=== PATIENT | male | born 1965 | race Caucasian/White ===

== ENCOUNTER 2017-06-15 14:47 | Emergency (ER) | payer SELFPAY ==
[~2017-06-15] VITALS: Ht 177.8 cm; Wt 85.0 kg
[~2017-06-15 14:47] MED LIST: BACT800T5 PO
[2017-06-15 15:01] VITALS: BP 140/79; PULSE 88; RESP 16; TEMP 97.9; O2SAT 96
--- NOTE | 2017-06-15 15:42 | PD ---
HPI Chief Complaint: Back/ Neck Pain or Injury Time Seen by Provider: 15:25 Travel History International Travel<30 days: No Contact w/Intl Traveler<30days: No Traveled to known affect area: No History of Present Illness HPI 52-year-old male presents to the emergency department for right-sided low back pain since this morning. States he has never had back pain before is concerned that is something serious. States that his pain increases with back extension and improves with sitting up straight, without radiation of pain. States when he has the pain it is sharp in nature and moderate. Denies numbness, tingling, or weakness. Denies fever, chills, chest pain, shortness of breath, bowel or bladder incontinence, IV drug use, or personal history cancer. Also denies any inciting events. PFSH Past Medical History Diminished Hearing: No Immunizations Current: Yes Social History Alcohol Use: No Tobacco Use: Yes (1PPD) Substance Use: No Allergies-Medications (Allergen,Severity, Reaction): Coded Allergies: No Known Allergies (Unverified , 06/15/17) Reported Meds & Prescriptions Reported Meds & Active Scripts Active Robaxin (Methocarbamol) 500 Mg Tab 500 Mg PO TID 3 Days Review of Systems Except as stated in HPI: all other systems reviewed are Neg Physical Exam Narrative GENERAL: Well-developed well-nourished SKIN: Focused skin assessment warm/dry. HEAD: Atraumatic. Normocephalic. NECK: Trachea midline. No JVD. CARDIOVASCULAR: Regular rate and rhythm. No murmur appreciated. RESPIRATORY: No accessory muscle use. Clear to auscultation. Breath sounds equal bilaterally. GASTROINTESTINAL: Abdomen soft, non-tender, nondistended. MUSCULOSKELETAL: No obvious deformities. No clubbing. No cyanosis. No edema. BACK: No CVA tenderness. No rash. No point tenderness on palpation of the spine. Mild TTP to the left SI joint and surrounding musculature NEUROLOGICAL: Awake and alert. No obvious cranial nerve deficits. Motor grossly within normal limits. Normal speech. Neurovascular intact PSYCHIATRIC: Appropriate mood and affect; insight and judgment normal. Data Data Last Documented VS Vital Signs Date Time Temp Pulse Resp B/P (MAP) Pulse Ox O2 Delivery O2 Flow Rate FiO2 06/15/17 15:01 97.9 88 16 140/79 (99) 96 Orders Orders Ed Discharge Order (06/15/17 15:44) [facility] Medical Decision Making Medical Screen Exam Complete: Yes Emergency Medical Condition: Yes Differential Diagnosis Right sciatica versus lumbar ago versus strain versus sprain versus sacroiliitis Narrative Course 52-year-old male complaining of low back pain since this morning. Patient denies any inciting events and any red flags. Patient was concerned that this was a serious condition since he had never had back pain before. Physical exam revealed mild tenderness to palpation of the right SI joint and surrounding musculature, otherwise normal. Neurovascularly intact. 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 Advised patient when to return to the emergency department Diagnosis Primary Impression: Muscle strain Referrals: [facility] Departure Forms: Tests/Procedures, Work Release Enter return to work date: Jun 17, 2017 Additional Instructions: Perform light stretches of the lower back and legs, and alternate heat and ice packs. If you develop increased pain, weakness, fever, chills, or bowel or bladder issues, return to the ED for further treatment and evaluation. Follow up with your primary care physician in 2-3 days. Scripts Methocarbamol (Robaxin) 500 Mg Tab 500 MG PO TID for Muscle Spasm for 3 Days, TAB 0 Refills Prov: Ladan Naik DO 06/15/17 Disposition: 01 DISCHARGE HOME Condition: Stable Padmini Camilo Jun 15, 2017 15:42
[2017-06-15] MEDS ORDERED: ROBA500T PO (15:43)
== END 2017-06-15 15:55 | disposition home or self-care (01) ==
LOC: PHEFT 14:47
DX: S39.012A Strain of muscle, fascia and tendon of lower back, initial encounter (principal); X58.XXXA Exposure to other specified factors, initial encounter
CPT/HCPCS: 99283

== ENCOUNTER 2018-01-10 14:56 | Emergency (ER) | payer SELFPAY ==
[~2018-01-10 14:56] MED LIST changes: -BACT800T5 PO; +ROBA500T PO
[2018-01-10 14:59] VITALS: BP 144/77; PULSE 95; RESP 16; TEMP 98.2; O2SAT 97
--- NOTE | 2018-01-10 15:43 | PD ---
HPI Chief Complaint: Skin Problem Time Seen by Provider: 15:16 Travel History International Travel<30 days: No Contact w/Intl Traveler<30days: No Traveled to known affect area: No History of Present Illness HPI 52-year-old male here with abscess to left chest wall. He reports the area has been present for several years and he usually expresses white thick drainage from the area. Over the last 2 weeks areas become increasingly more painful, swollen, red. No fever chills. He attempted to poke the area with a needle to drain the area but was unsuccessful. He has constant aching pain at the site of the lesion. Severity is moderate. No aggravating or relieving factors. PFSH Past Medical History Diminished Hearing: No Immunizations Current: Yes Social History Alcohol Use: No Tobacco Use: Yes (1PPD) Substance Use: No Allergies-Medications (Allergen,Severity, Reaction): Coded Allergies: No Known Allergies (Verified Adverse Reaction, Unknown, 01/10/18) Reported Meds & Prescriptions Reported Meds & Active Scripts Active No Active Prescriptions or Reported Medications Review of Systems Except as stated in HPI: all other systems reviewed are Neg General / Constitutional: No: Fever Eyes: No: Visual changes HENT: No: Headaches Cardiovascular: No: Chest Pain or Discomfort Respiratory: No: Shortness of Breath Gastrointestinal: No: Abdominal Pain Genitourinary: No: Dysuria Physical Exam Narrative GENERAL: Alert and well-appearing 52-year-old male SKIN: Abscess to the left chest wall measuring approximately 2-1/2 cm with a fluctuant center. No surrounding cellulitis. No lymphangitis. HEAD: Normocephalic. EYES: No scleral icterus. No injection or drainage. NECK: Supple CARDIOVASCULAR: Regular rate and rhythm RESPIRATORY: Breath sounds equal bilaterally. No accessory muscle use. GASTROINTESTINAL: Abdomen soft, non-tender, nondistended. MUSCULOSKELETAL: No cyanosis, or edema. Data Data Last Documented VS Vital Signs Date Time Temp Pulse Resp B/P (MAP) Pulse Ox O2 Delivery O2 Flow Rate FiO2 01/10/18 14:59 98.2 95 16 144/77 (99) 97 MDM Medical Decision Making Medical Screen Exam Complete: Yes Emergency Medical Condition: Yes Differential Diagnosis Abscess, inflamed sebaceous cyst, cellulitis Narrative Course 52-year-old male here with an abscess to the left chest wall Left breast. Reports the area has been there for several years and sounds to be a sebaceous cyst which she self expresses by squeezing. Over the last 3 weeks area became painful and red. Incision and drainage was performed. Patient tolerated procedure well. He was instructed to follow-up with his primary doctor for recheck in 2 days. Procedures Procedure Narrative INCISION AND DRAINAGE OF ABSCESS: The area was prepped and was sterilely draped. A subcutaneous wheal of 1 % Xylocaine with a total number 2 mL was used to anesthetize the area properly. A number 11 scalpel was used to make a 0.5 -cm incision across the area of the abscess. The abscess was drained, complex loculations were broken down, and irrigated with normal saline. Diagnosis Primary Impression: Abscess Referrals: Primary Care Physician Additional Instructions: Antibiotics as directed. Follow-up with your primary doctor for reevaluation in 2 days. Return if you have new or worsening symptoms. Scripts Ketorolac (Ketorolac) 10 Mg Tab 10 MG PO Q6HR Y for PAIN, #10 TAB 0 Refills Prov: Corrine Hollins 01/10/18 Sulfamethoxazole-Trimethoprim (Bactrim DS) 800-160 Mg Tab 1 TAB PO BID for Infection, #20 TAB 0 Refills Prov: Corrine Hollins 01/10/18 Disposition: 01 DISCHARGE HOME Condition: Stable Corrine Hollins January 10, 2018 15:43
[2018-01-10] MEDS ORDERED: KETO10 PO (15:45)
[2018-01-10] MEDS ORDERED: BACT800T5 PO (15:45)
== END 2018-01-10 15:51 | disposition home or self-care (01) ==
LOC: PHEFT 14:56
DX: L02.213 Cutaneous abscess of chest wall (principal); F17.200 Nicotine dependence, unspecified, uncomplicated
CPT/HCPCS: 10060